=== PATIENT | male | born 1935 | race Caucasian/White ===

== ENCOUNTER 2019-07-28 11:29 | Outpatient (RCR) | payer MEDICARE, SELFPAY ==
[2019-05-31 10:31] LABS: INR 2.5; Prothrombin Time 26.7 Seconds (9.64-11.0)
[2019-06-30 14:23] LABS: INR 2.5; Prothrombin Time 25.8 Seconds (9.64-11.0)
[2019-07-28 11:49] LABS: INR 2.7; Prothrombin Time 28.8 Seconds (9.64-11.0)
== END 2019-08-29 23:59 | disposition home or self-care (01) ==
LOC: CHSLAB 11:29
PROVIDERS: Visit Provider Family Medicine
DX: Z79.01 Long term (current) use of anticoagulants (principal)
CPT/HCPCS: 36415; 85610

== ENCOUNTER 2019-09-23 10:07 | Outpatient (RCR) | payer MEDICARE, SELFPAY ==
[2019-09-01 11:47] LABS: Prothrombin Time 19.9 Seconds (9.64-11.0)
== END 2019-11-30 23:59 | disposition home or self-care (01) ==
LOC: CHSLAB 10:07
PROVIDERS: PCP Family Medicine; Visit Provider Family Medicine
DX: Z79.01 Long term (current) use of anticoagulants (principal)
CPT/HCPCS: 36415; 85610

== ENCOUNTER 2019-09-23 10:16 | Outpatient (CLI) | payer MEDICARE, SELFPAY ==
[2019-09-23 10:40] LABS: Hematocrit 40.4 % (37.0-46.0); Hemoglobin 12.7 g/dL (12.4-15.3); Mean Corpuscular HGB Conc 31.4 g/dL (32.0-36.0); Mean Corpuscular Hemoglobin 25.6 pg (27.0-31.0); Mean Corpuscular Volume 81.5 fL (78.0-102.0); Mean Platelet Volume 9.2 fl (8.7-11.0); Platelet Count Result 261 K/mm3 (150-420); Red Blood Count 4.96 M/mm3 (4.70-6.10); Red Cell Distribution Width 15.6 % (11.6-14.4); White Blood Count 7.5 K/mm3 (4.8-10.8)
[2019-09-23 10:51] LABS: INR 2.1; Prothrombin Time 21.3 Seconds (9.64-11.0)
[2019-09-23 11:17] LABS: Anion Gap 16.4 mmol/L (7-16); Blood Urea Nitrogen 24 mg/dL (7-18); Calcium 9.4 mg/dL (8.5-10.1); Carbon Dioxide 26 mmol/L (21-32); Chloride 100 mmol/L (98-108); Estimated Glomerular Filt Rate 60; Glucose 88 mg/dL (70-99); Osmolality Calculated 289 mOsm/kg (285-295); Potassium 4.4 mmol/L (3.5-5.1); Sodium 138 mmol/L (136-145)
== END 2019-09-23 10:17 | disposition home or self-care (01) ==
LOC: CHSLAB 10:22
PROVIDERS: PCP Family Medicine; Visit Provider Family Medicine
DX: Z51.81 Encounter for therapeutic drug level monitoring (principal); Z79.01 Long term (current) use of anticoagulants; I10 Essential (primary) hypertension
CPT/HCPCS: 36415; 80048; 85027; 85610

== ENCOUNTER 2019-12-22 11:04 | Outpatient (CLI) | payer MEDICARE, SELFPAY ==
--- NOTE | ~2019-12-22 | XR_ITS ---
EXAMINATION: XR lumbar spine 2-3V EXAM DATE: 12/22/2019 11:43 INDICATION: Chronic right-sided low back pain with bilateral sciatica. TECHNIQUE: Lumber spine frontal, lateral, lateral L5-S1 projections for interpretation. Comparison is made to prior examination from 02/12/2018. FINDINGS: Severe lower lumbar facet arthropathy. There are large bridging endplate osteophytes at L2 -3 and L3-4. There is 3 mm anterolisthesis L4 on L5. The vertebral bodies are otherwise aligned. The lumbar disc and vertebral body heights appear relatively well-maintained. Extensive aortic arterial s clerosis with left common iliac arterial stent identified. Bilateral pelvic surgical clips likely fro m lymph node dissection. There are no acute fractures identified. IMPRESSION: 1. Severe lower lumbar facet arthropathy. 2. Spondylosis as detailed above not significantly changed. Reviewed, dictated and finalized at location A.
--- NOTE | ~2019-12-22 | XR_ITS ---
EXAMINATION: XR hip BI 2V w AP pelvis EXAM DATE: 12/22/2019 11:43 INDICATION: Chronic right-sided low back pain, bilateral sciatica. TECHNIQUE: Each hip imaged independently (separate right and also left hip) 'frog leg' and frontal p rojections for interpretation. Frontal projection pelvis. There is no prior study for comparison. FINDINGS: No radiographic evidence of hip avascular necrosis. There is moderate symmetric bilateral hip primary osteoarthritis. There are no acute fractures or dislocations identified. There is no ruby bcutaneous gas. Pelvic surgical clips. Left common iliac and right superficial femoral arterial sten ts. The soft tissue is unremarkable. IMPRESSION: Moderate symmetric bilateral hip osteoarthritis. Reviewed, dictated and finalized at location A.
[2019-12-22 11:27] LABS: INR 2.3; Prothrombin Time 23.4 Seconds (9.64-11.0)
== END 2019-12-22 11:05 | disposition home or self-care (01) ==
PROVIDERS: PCP Family Medicine; Visit Provider Family Medicine
DX: M54.41 Lumbago with sciatica, right side (principal); M54.42 Lumbago with sciatica, left side; G89.29 Other chronic pain; Z79.01 Long term (current) use of anticoagulants
CPT/HCPCS: 36415; 72100; 73521; 85610

== ENCOUNTER 2020-03-23 11:08 | Outpatient (RCR) | payer MEDICARE, SELFPAY ==
[2020-01-24 11:15] LABS: INR 2.8; Prothrombin Time 28.4 Seconds (9.64-11.0)
[2020-02-21 12:23] LABS: INR 2.3; Prothrombin Time 23.6 Seconds (9.64-11.0)
[2020-03-23 11:34] LABS: INR 2.2; Prothrombin Time 22.6 Seconds (9.64-11.0)
== END 2020-04-23 23:59 | disposition home or self-care (01) ==
LOC: CHSLAB 11:08
PROVIDERS: PCP Family Medicine; Visit Provider Family Medicine
DX: Z51.81 Encounter for therapeutic drug level monitoring (principal); Z79.01 Long term (current) use of anticoagulants
CPT/HCPCS: 36415; 85610

== ENCOUNTER 2020-06-26 12:56 | Outpatient (RCR) | payer MEDICARE, SELFPAY ==
[2020-04-24 11:15] LABS: INR 3.1; Prothrombin Time 30.9 Seconds (9.64-11.0)
[2020-05-01 11:24] LABS: INR 2.2; Prothrombin Time 22.2 Seconds (9.64-11.0)
[2020-05-24 09:40] LABS: INR 2.5; Prothrombin Time 24.8 Seconds (9.64-11.0)
[2020-06-20 11:21] LABS: INR 3.2; Prothrombin Time 32.8 Seconds (9.50-12.10)
[2020-06-26 13:27] LABS: INR 2.1; Prothrombin Time 22.5 Seconds (9.50-12.10)
== END 2020-07-23 23:59 | disposition home or self-care (01) ==
LOC: CHSLAB 12:56
PROVIDERS: PCP Family Medicine; Visit Provider Family Medicine
DX: Z51.81 Encounter for therapeutic drug level monitoring (principal); Z79.01 Long term (current) use of anticoagulants
CPT/HCPCS: 36415; 85610

== ENCOUNTER 2020-08-28 10:47 | Outpatient (RCR) | payer MEDICARE, SELFPAY ==
[2020-07-24 11:47] LABS: INR 3.1; Prothrombin Time 32.1 Seconds (9.50-12.10)
[2020-07-31 11:33] LABS: INR 2.6; Prothrombin Time 27.5 Seconds (9.50-12.10)
[2020-08-28 11:10] LABS: INR 2.9; Prothrombin Time 29.3 Seconds (9.50-12.10)
== END 2020-10-22 23:59 | disposition home or self-care (01) ==
LOC: CHSLAB 10:47
PROVIDERS: PCP Family Medicine; Visit Provider Family Medicine
DX: Z51.81 Encounter for therapeutic drug level monitoring (principal); Z79.01 Long term (current) use of anticoagulants
CPT/HCPCS: 36415; 85610

== ENCOUNTER 2020-09-25 08:15 | Outpatient (CLI) | payer MEDICARE, SELFPAY ==
--- NOTE | ~2020-09-25 | CT_ITS ---
EXAMINATION: CTA abd aorta runoff EXAM DATE: 09/25/2020 09:59 INDICATION: Claudification; aftercare following surgery post circulatory surg 2 yrs f/u, bilat leg we akness, hx CA . TECHNIQUE: Spiral CTA abd aorta runoff was performed following intravenous injection of 150 mL Omnipa que 350. Axial, coronal and sagittal images were reviewed. Maximum intensity projection 3-D reconstr uctions of the arteries were created by the technologist on dedicated workstation. The dose-length product (DLP) for this examination was 1619.66 mGy-cm. The exposure was tailored according to patie nt size (auto mA exposure control), and iterative reconstruction (ASIR) was used as additional dose r eduction technique. Correlation is made to abdomen pelvis CT 04/09/2018. FINDINGS: ARTERIES: Aorta normal in caliber. There is moderate to severe scattered aortoiliac arterial sclerosi s. Probably mild stenosis origin of left renal artery. RIGHT lower extremity demonstrates severe shor t segment moderate stenosis external iliac artery deep to the femoral canal (axial image 150) with shawn men narrowed to 2 mm. Completely occluded stent within the [place] superficial femoral artery. There i s a medially located graft widely patent, reconstituting the interosseous artery to the ankle, where collaterals reconstitute the other vessels. LEFT lower extremity demonstrates scattered arterial scle rosis, with a short segment region of proximal SFA moderate stenosis narrowing the lumen to 2.3 mm (a xial image 218). There is mid femoral stent, intimal hyperplasia, lumen narrowed throughout but most severe to about 1 mm lumen (axial image 266). Intraosseous is the dominant supply to the foot, appear s to reconstitute the posterior tibial at the ankle. INCIDENTAL FINDINGS: Small hiatal hernia. Mild mirlande mesentery appearance, nonspecific. Mild sigmoid predominant diverticulosis. Small umbilical hernia. Prostatectomy, pelvic lymph node dissection. No r etroperitoneal or pelvic lymphadenopathy. Right inguinal fat stranding (recent catheterization?. IMPRESSION: 1. Stents, arterial sclerosis and stenoses as above with intraosseous arteries reconstituting others at the ankle. 2. Small hiatal hernia, other incidental findings as above. Reviewed, dictated and finalized at location B. LING FIELD OPERATOR
[2020-09-25 09:02] LABS: INR 3.1; Prothrombin Time 31.1 Seconds (9.50-12.10)
[2020-09-25 09:09] LABS: Estimated Glomerular Filt Rate 45
== END 2020-09-25 08:16 | disposition home or self-care (01) ==
LOC: CHSIMG 08:19 → CHSLAB 11:51
PROVIDERS: PCP Family Medicine
DX: Z51.81 Encounter for therapeutic drug level monitoring (principal); Z79.01 Long term (current) use of anticoagulants; I25.10 Atherosclerotic heart disease of native coronary artery without angina pectoris; Z48.812 Encounter for surgical aftercare following surgery on the circulatory system
CPT/HCPCS: 75635; 85610; Q9967

== ENCOUNTER 2021-01-12 11:37 | Outpatient (RCR) | payer MEDICARE, SELFPAY ==
[2020-10-23 10:26] LABS: Prothrombin Time 30.8 Seconds (9.50-12.10)
[2020-11-16 12:54] LABS: INR 3.6; Prothrombin Time 36.1 Seconds (9.50-12.10)
[2020-11-21 10:23] LABS: INR 3.1; Prothrombin Time 31.4 Seconds (9.50-12.10)
[2020-11-27 11:18] LABS: INR 2.5; Prothrombin Time 25.1 Seconds (9.50-12.10)
[2021-01-05 13:44] LABS: INR 1.9; Prothrombin Time 19.8 Seconds (9.50-12.10)
[2021-01-12 12:03] LABS: INR 2.7; Prothrombin Time 27.2 Seconds (9.50-12.10)
== END 2021-01-21 23:59 | disposition home or self-care (01) ==
LOC: CHSLAB 11:37
PROVIDERS: PCP Family Medicine; Visit Provider Family Medicine
DX: Z79.01 Long term (current) use of anticoagulants (principal); I25.10 Atherosclerotic heart disease of native coronary artery without angina pectoris
CPT/HCPCS: 36415; 85610

== ENCOUNTER 2021-05-14 10:45 | Outpatient (RCR) | payer MEDICARE, SELFPAY ==
[2021-02-19 10:50] LABS: Prothrombin Time 30.6 Seconds (9.50-12.10)
[2021-03-20 11:59] LABS: Prothrombin Time 20.8 Seconds (9.50-12.10)
[2021-04-23 11:21] LABS: INR 3.8; Prothrombin Time 37.7 Seconds (9.50-12.10)
[2021-04-30 11:23] LABS: INR 1.9; Prothrombin Time 19.8 Seconds (9.50-12.10)
[2021-05-14 11:09] LABS: INR 1.8; Prothrombin Time 18.6 Seconds (9.50-12.10)
== END 2021-05-20 23:59 | disposition home or self-care (01) ==
LOC: CHSLAB 10:45
PROVIDERS: PCP Family Medicine; Visit Provider Family Medicine
DX: Z79.01 Long term (current) use of anticoagulants (principal); I25.10 Atherosclerotic heart disease of native coronary artery without angina pectoris
CPT/HCPCS: 36415; 85610

== ENCOUNTER 2021-08-28 11:12 | Outpatient (RCR) | payer MEDICARE, SELFPAY ==
[2021-06-11 10:20] LABS: INR 2.5; Prothrombin Time 25.7 Seconds (9.50-12.10)
[2021-07-16 11:15] LABS: INR 3.2; Prothrombin Time 32.1 Seconds (9.50-12.10)
[2021-07-23 15:40] LABS: INR 2.4
[2021-08-28 11:43] LABS: INR 2.6; Prothrombin Time 26.1 Seconds (9.50-12.10)
== END 2021-09-09 23:59 | disposition home or self-care (01) ==
LOC: CHSLAB 11:12
PROVIDERS: PCP Family Medicine; Visit Provider Family Medicine
DX: Z51.81 Encounter for therapeutic drug level monitoring (principal); Z79.01 Long term (current) use of anticoagulants; I25.10 Atherosclerotic heart disease of native coronary artery without angina pectoris
CPT/HCPCS: 36415; 85610

== ENCOUNTER 2021-09-06 10:40 | Outpatient (NON) | payer MEDICARE, SELFPAY | END 2021-09-06 10:41 | disposition home or self-care (01) | LOC: CHSLAB 10:41 | PROVIDERS: Visit Provider Family Medicine | DX: D18.01 Hemangioma of skin and subcutaneous tissue (principal) | CPT/HCPCS: 88305 ==

== ENCOUNTER 2021-10-08 15:12 | Outpatient (CLI) | payer MEDICARE, SELFPAY ==
--- NOTE | ~2021-10-08 | XR_ITS ---
EXAMINATION: XR knee RT 3V DATE: 10/08/2021 15:44 INDICATION: Right knee effusion TECHNIQUE: Three views of the right knee were obtained. COMPARISON: None. FINDINGS: Alignment is normal. No fracture or osteochondral lesion. There is mild tricompartmental os teoarthritis characterized by tiny marginal osteophytes. There is a trace knee joint effusion. Vascul ar stents are noted. IMPRESSION: 1. Mild osteoarthritis without acute osseous abnormality. 2. Trace joint effusion. Reviewed, dictated and finalized at location B.
[2021-10-08 15:31] LABS: Hematocrit 38.5 % (37.0-46.0); Hemoglobin 11.9 g/dL (12.4-15.3); Mean Corpuscular HGB Conc 30.9 g/dL (32.0-36.0); Mean Corpuscular Hemoglobin 26.2 pg (27.0-31.0); Mean Corpuscular Volume 84.6 fL (78.0-102.0); Mean Platelet Volume 9.6 fl (8.7-11.0); Platelet Count Result 255 K/mm3 (150-420); Red Blood Count 4.55 M/mm3 (4.70-6.10); Red Cell Distribution Width 16.9 % (11.6-14.4); White Blood Count 10.8 K/mm3 (4.8-10.8)
[2021-10-08 15:51] LABS: INR 2.9; Prothrombin Time 29.1 Seconds (9.50-12.10)
[2021-10-08 15:55] LABS: Alanine Aminotransferase 27 U/L (16-63); Albumin Level 3.4 g/dL (3.4-5.0); Alkaline Phosphatase 61 U/L (46-116); Anion Gap 9 mmol/L (8-16); Aspartate Amino Transferase 17 U/L (15-37); Bilirubin,Total 0.2 mg/dL (0.00-1.00); Blood Urea Nitrogen 32 mg/dL (7-18); Calcium 8.5 mg/dL (8.5-10.1); Carbon Dioxide 27 mmol/L (21-32); Chloride 100 mmol/L (98-108); Estimated Glomerular Filt Rate 37; Glucose 114 mg/dL (70-99); Osmolality Calculated 289 mOsm/kg (285-295); Potassium 3.8 mmol/L (3.5-5.1); Sodium 136 mmol/L (136-145); Total Protein 6.4 g/dL (6.4-8.2)
[2021-10-10 10:34] LABS: Source Synovial Fluid Synovial fluid
[2021-10-10 10:35] LABS: Appearance Synovial Fluid Cloudy (Clear); Color Synovial Fluid Other (Colorless)
[2021-10-10 10:37] LABS: Nucleated Cell Synovial Fluid 338 /uL (0-200)
[2021-10-10 10:38] LABS: Neutrophils Synovial Fluid 25 % (0-25)
[2021-10-10 10:39] LABS: Lymphocytes Synovial Fluid 25 %; Monocytes Synovial Fluid 47 %
[2021-10-10 10:40] LABS: RBC Synovial Fluid 0 /uL (0-0)
[2021-10-10 10:42] LABS: Other Cells Synovial Fluid 3 %
[2021-10-13 06:15] LABS: Crystals Synovial Fluid None Seen (None Seen)
== END 2021-10-08 15:13 | disposition home or self-care (01) ==
LOC: CHSIMG 15:16
PROVIDERS: PCP Family Medicine; Visit Provider Family Medicine
DX: M25.461 Effusion, right knee (principal); Z79.01 Long term (current) use of anticoagulants
CPT/HCPCS: 36415; 73562; 80053; 83615; 85027; 85610; 87070; 87075; 87205; 88108; 89051; 89060

== ENCOUNTER 2021-12-14 10:41 | Outpatient (RCR) | payer MEDICARE, SELFPAY ==
[2021-09-18 11:37] LABS: INR 3.3
[2021-11-02 11:50] LABS: INR 3.2; Prothrombin Time 32.4 Seconds (9.50-12.10)
[2021-11-12 11:09] LABS: INR 3.2; Prothrombin Time 32.7 Seconds (9.50-12.10)
[2021-11-19 11:08] LABS: Prothrombin Time 40.2 Seconds (9.50-12.10)
[2021-11-26 10:50] LABS: INR 1.7; Prothrombin Time 17.2 Seconds (9.50-12.10)
[2021-12-14 11:41] LABS: INR 1.2
== END 2021-12-17 23:59 | disposition home or self-care (01) ==
LOC: CHSLAB 10:41
PROVIDERS: PCP Family Medicine; Visit Provider Family Medicine
DX: Z79.01 Long term (current) use of anticoagulants (principal)
CPT/HCPCS: 36415; 85610

== ENCOUNTER 2022-03-22 09:01 | Outpatient (RCR) | payer MEDICARE, SELFPAY ==
[2022-01-09 11:36] LABS: INR 2.3; Prothrombin Time 23.9 Seconds (9.50-12.10)
[2022-02-18 10:50] LABS: INR 2.1; Prothrombin Time 21.9 Seconds (9.50-12.10)
[2022-03-22 09:22] LABS: INR 2.3; Prothrombin Time 23.4 Seconds (9.50-12.10)
== END 2022-04-09 23:59 | disposition home or self-care (01) ==
LOC: CHSLAB 09:01
PROVIDERS: PCP Family Medicine; Visit Provider Family Medicine
DX: Z79.01 Long term (current) use of anticoagulants (principal)
CPT/HCPCS: 36415; 85610

== ENCOUNTER 2022-07-23 12:45 | Outpatient (RCR) | payer MEDICARE, SELFPAY ==
[2022-05-29 12:48] LABS: INR 2.6; Prothrombin Time 26.6 Seconds (9.50-12.10)
[2022-07-08 12:21] LABS: INR 1.9; Prothrombin Time 19.3 Seconds (9.50-12.10)
[2022-07-23 13:28] LABS: Prothrombin Time 21.1 Seconds (9.50-12.10)
== END 2022-08-27 23:59 | disposition home or self-care (01) ==
LOC: CHSLAB 12:45
PROVIDERS: PCP Family Medicine; Visit Provider Family Medicine
DX: Z51.81 Encounter for therapeutic drug level monitoring (principal); Z79.01 Long term (current) use of anticoagulants
CPT/HCPCS: 36415; 85610

== ENCOUNTER 2022-11-18 11:32 | Outpatient (RCR) | payer MEDICARE, SELFPAY ==
[2022-08-28 13:03] LABS: INR 1.6; Prothrombin Time 17.2 Seconds (9.50-12.10)
[2022-09-04 14:33] LABS: INR 1.1
[2022-09-10 10:52] LABS: Prothrombin Time 10.8 Seconds (9.50-12.10)
[2022-10-09 10:29] LABS: INR 1.7
[2022-10-22 11:49] LABS: INR 2.9; Prothrombin Time 29.3 Seconds (9.50-12.10)
[2022-11-18 11:59] LABS: INR 2.9
== END 2022-11-26 23:59 | disposition home or self-care (01) ==
LOC: CHSLAB 11:32
PROVIDERS: PCP Family Medicine; Visit Provider Family Medicine
DX: Z51.81 Encounter for therapeutic drug level monitoring (principal); Z79.01 Long term (current) use of anticoagulants
CPT/HCPCS: 36415; 85610

== ENCOUNTER 2022-12-26 11:16 | Outpatient (RCR) | payer MEDICARE, SELFPAY ==
[2022-12-19 14:32] LABS: INR 1.8; Prothrombin Time 19.2 Seconds (9.50-12.10)
[2022-12-26 11:52] LABS: Prothrombin Time 20.7 Seconds (9.50-12.10)
== END 2023-03-16 23:59 | disposition home or self-care (01) ==
LOC: CHSLAB 11:16
PROVIDERS: PCP Family Medicine; Visit Provider Family Medicine
DX: Z51.81 Encounter for therapeutic drug level monitoring (principal); Z79.01 Long term (current) use of anticoagulants
CPT/HCPCS: 36415; 85610

== ENCOUNTER 2023-01-23 11:17 | Outpatient (CLI) | payer MEDICARE, SELFPAY ==
[2023-01-23 11:49] LABS: INR 3.4
== END 2023-01-23 11:18 | disposition home or self-care (01) ==
LOC: CHSLAB 11:23
PROVIDERS: PCP Family Medicine; Visit Provider Family Medicine
DX: Z79.01 Long term (current) use of anticoagulants (principal)
CPT/HCPCS: 36415; 85610

== ENCOUNTER 2023-01-27 08:59 | Outpatient (CLI) | payer MEDICARE, SELFPAY ==
[2023-01-27 09:27] LABS: INR 2.2; Prothrombin Time 22.3 Seconds (9.50-12.10)
== END 2023-01-27 09:00 | disposition home or self-care (01) ==
LOC: CHSLAB 09:03
PROVIDERS: PCP Family Medicine; Visit Provider Family Medicine
DX: Z79.01 Long term (current) use of anticoagulants (principal)
CPT/HCPCS: 36415; 85610

== ENCOUNTER 2023-02-26 19:00 | Emergency (ER) | payer MEDICARE, SELFPAY ==
--- NOTE | ~2023-02-26 | XR_ITS ---
EXAMINATION: XR chest 1V portable Exam Date/Time: 02/26/2023 19:50 CDT HISTORY: fall/NO CHEST COMPLAINTS Comparison: 01/03/2017. RESULT: Lines, tubes, and devices: None. Lungs and pleura: Senescent change, otherwise clear. Cardiomediastinal silhouette: Stable. Other: No acute osseous or upper abdominal finding. IMPRESSION: No acute cardiopulmonary process. Reviewed, dictated and finalized at location K.
--- NOTE | ~2023-02-26 | CT_ITS ---
EXAMINATION: CT brain wo con DATE: 02/26/2023 20:29 INDICATION: FALL/LEFT SIDE HEAD INJURY . TECHNIQUE: Computed tomography (CT) of the head was performed without intravenous contrast. The mA wa s adjusted according to patient size. Iterative reconstruction technique was employed. The dose-lengt h product was 681.00 mGy-cm. COMPARISON: None. FINDINGS: Hyperechoic thickening along the right side of the falx cerebri and extending along the right tentori um, with areas of mixed internal hyperdensity as well as the hematocrit effect, maximum thickness 9 m m. Very thin 2 to 3 mm isoechoic right hemispheric subdural collection. There is mass effect in the r ight hemisphere, with subtle effacement of the right lateral ventricle and multiple left cerebral sul ci. No hydrocephalus, mass, or herniation. No acute ischemic infarct. Unremarkable dural venous sinus attenuation. No acute osseous abnormality. The aerated spaces are clear. Moderate atrophy and mild chronic white matter change. Atherosclerotic intracranial calcification. Bi lateral lens replacements. IMPRESSION: Acute on subacute right sided intracranial hemorrhage, with mass effect on the right cerebral hemisph ere. The intracranial hemorrhage includes acute, moderate volume, subdural hemorrhage along the falx and r ight tentorium as well as a subacute, small volume, right hemispheric subdural collection. Results reported telephonically to Dr. Schmitt by Dr. Mora at 8:45 PM on 02/26/2023. Reviewed, dictated and finalized at location K. IMPRESSION: Acute on subacute right sided intracranial hemorrhage, with mass effect on the right cerebral hemisphere. The intracranial hemorrhage includes acute, moderate volume, subdural hemorrhag e along the falx and right tentorium as well as a subacute, small volume, right hemispheric subdural collection. Results reported telephonically to Dr. Schmitt by Dr. Mora at 8:45 PM on 2022.
--- NOTE | ~2023-02-26 | CT_ITS ---
EXAMINATION: CT pelvis wo con DATE: 02/26/2023 20:31 INDICATION: Fall. Lower back pain. TECHNIQUE: Computed tomography (CT) of the pelvis was performed without intravenous contrast. Automat ed exposure control and iterative reconstruction technique were employed. The dose-length product was 770.66 mGy-cm. COMPARISON: None FINDINGS: Surgical clips in the pelvis and bilateral inguinal canals. Diverticulosis without divertic ulitis. Distended urinary bladder. Possible TURP and prostatectomy changes. Atherosclerotic calcifica tions. Left common iliac and right femoral artery stents. Decreased osseous mineralization. Degenerat nik changes in the lower lumbar spine and bilateral hips. No fracture or dislocation. IMPRESSION: No acute osseous finding in the pelvis. Reviewed, dictated and finalized at location K.
--- NOTE | ~2023-02-26 | CT_ITS ---
EXAMINATION: CT thoracic spine wo con DATE: 02/26/2023 20:30 INDICATION: FALL/PAIN THROUGHOUT BACK . TECHNIQUE: Computed tomography (CT) of the thoracic spine was performed without intravenous contrast. Automated exposure control and iterative reconstruction technique were employed. The dose-length pro duct was 1544.21 mGy-cm. COMPARISON: None FINDINGS: THORACIC SPINE: Vertebral body alignment intact. Exaggerated thoracic kyphosis. Multilevel disc space narrowing and p artial disc space fusion. Multiple large bridging and fused lateral osteophytes. Flowing ossification of the anterior longitudinal ligament. Syndesmophytes. Ossification along the interspinous ligament. These changes may be related to ankylosing spondylitis and/or DISH. No traumatic malalignment or fra cture. Visualized lung parenchyma is clear. IMPRESSION: No acute fracture or traumatic malalignment detected in the thoracic spine. Reviewed, dictated and finalized at location K.
--- NOTE | ~2023-02-26 | CT_ITS ---
EXAMINATION: CT cervical spine wo con DATE: 02/26/2023 20:30 INDICATION: fall/POSTERIOR NECK PAIN TECHNIQUE: Computed tomography (CT) of the cervical spine was performed without intravenous contrast. Automated exposure control and iterative reconstruction technique were employed. The dose-length pro duct was 488.25 mGy-cm. COMPARISON: None. FINDINGS: Vertebral Body Alignment: Intact. Craniocervical and atlantoaxial alignment: Severe degenerative change. Alignment intact. Osseous structures/fracture: No evidence of a lytic or blastic process in the visualized spine. No e vidence of acute fracture. Cervical soft tissues: The paraspinal soft tissues planes are maintained. Scattered tree-in-bud opaci ties in the upper lungs. Degenerative changes: Multilevel degenerative disc disease and facet arthropathy, including large chandana dging anterior osteophytes. Multilevel bilateral neural foraminal narrowing. Moderate central canal n arrowing at multiple levels. IMPRESSION: No acute fracture or traumatic malalignment in the cervical spine. Tree-in-bud opacities in the upper lungs may represent atypical infection. Reviewed, dictated and finalized at location K.
[2023-02-26 19:09] VITALS: BP 179/59; PULSE 78; RESP 18; TEMP 36.4; O2SAT 98
--- NOTE | 2023-02-26 19:37 | ED.FALL ---
HPI - Fall General Chief Complaint: Fall Stated Complaint: Fall Source: patient Mode of arrival: ambulatory Limitations: no limitations History of Present Illness HPI Narrative: 87-year-old male with hypertension, dyslipidemia, peripheral vascular disease, CAD status post stents, CKD, DVT on warfarin, varicose veins status post stripping in the right leg, prostate cancer on Lupron lost balance and fell. He presents with -- left occipital hematoma -- midback pain no other injury noted MD complaint: fall Onset (ago): hour(s) ( 2 hours ago) Fall from: standing Fall witnessed: no Place fall occurred: home Loss of consciousness: none Prolonged down time: no Symptoms prior to fall: none Context: tripped/slipped Location of injury: head and back Related Data Home Medications Medication Instructions Recorded Confirmed aspirin 81 mg tablet,delayed 81 mg PO DAILY 09/14/19 02/26/23 release (Adult Low Dose Aspirin) latanoprost 0.005 % eye drops 1 drop ophthalmic (eye) DAILY 09/14/19 02/26/23 timolol 0.5 % eye drops 1 drop ophthalmic (eye) Q12H 09/14/19 02/26/23 cyanocobalamin (vitamin B-12) 100 100 mcg PO DAILY 02/26/21 02/26/23 mcg tablet esomeprazole magnesium 40 mg 40 mg PO DAILY 02/26/21 02/26/23 capsule,delayed release leuprolide (3 month) 22.5 mg (3 22.5 mg IM [id number] 02/26/21 02/26/23 month) intramuscular syringe kit dupilumab 300 mg/2 mL subcutaneous 300 mg subcut DIRECTED 02/26/23 02/26/23 pen injector ([employer]) Allergies Allergy/AdvReac Type Severity Reaction Status Date / Time No Known Allergies Allergy Verified 10/11/22 07:17 Review of Systems Review of Systems: All systems reviewed & are unremarkable except as noted in HPI and below Constitutional: Constitutional: Reports as per HPI and Reports no additional constitutional complaints Eyes: Eyes: Reports as per HPI and Reports no additional eye complaints ENT: Reports system reviewed and no additional complaints, except as documented and Reports as per HPI Cardiovascular: Cardiovascular: Reports as per HPI and Reports no additional cardiovascular complaints Respiratory: Respiratory: Reports as per HPI and Reports no additional respiratory complaints Gastrointestinal: Gastrointestinal: Reports as per HPI and Reports no additional gastrointestinal complaints Genitourinary: Genitourinary: Reports no additional male genitourinary complaints Musculoskeletal: Musculoskeletal: Reports back pain Comments: he had mid back pain. No radiation of the pain. Integumentary/Breasts: Skin/Breast: Reports system reviewed and no additional complaints, except as docu Neurologic: Reports system reviewed and no additional complaints, except as documented and Reports as per HPI Comments: No headache no loss of consciousness. Psychiatric: Psychiatric: Reports no additional psychiatric complaints and Reports as per HPI Endocrine: Endocrine: Reports no additional endocrine complaints and Reports as per HPI Hematologic/Lymphatic: Hematologic/Lymphatic: Reports no additional hematologic/lymphatic complaints and Reports as per HPI Allergic/Immunologic: Allergic/Immunologic: Reports no additional allergic/immunologic complaints and Reports as per HPI [facility] Past Medical History Medical History Anticoagulation goal of INR 2 to 3 CAD (coronary artery disease) CKD (chronic kidney disease), stage III GERD (gastroesophageal reflux disease) Hyperlipidemia Hypertension Neuropathy Prostate cancer PVD (peripheral vascular disease) Surgical History Surgical History History of coronary artery stent placement History of prostatectomy Family History Family History Father Lung cancer Mother Skin cancer Sibling Carcinoma of colon Mother Family history
[2023-02-26 20:04] LABS: Basophils Absolute Auto 0.05 K/mm3 (0.00-0.10); Basophils Percent Auto 0.5 % (0.0-1.0); Eosinophils Absolute Auto 0.82 K/mm3 (0.02-0.50); Eosinophils Percent Auto 8.5 % (1.0-6.0); Hematocrit 34.8 % (37.0-46.0); Hemoglobin 10.8 g/dL (12.4-15.3); Immature Granulocyte Absolute 0.02 K/mm3 (0.00-0.00); Immature Granulocyte Percent A 0.2 % (0.0-0.0); Lymphocytes Absolute Auto 1.64 K/mm3 (1.10-4.50); Lymphocytes Percent Auto 17.1 % (18.0-42.0); Mean Corpuscular Hemoglobin 25.3 pg (27.0-31.0); Mean Corpuscular Volume 81.5 fL (78.0-102.0); Mean Platelet Volume 9.3 fl (8.7-11.0); Monocytes Absolute Auto 0.54 K/mm3 (0.10-0.90); Monocytes Percent Auto 5.6 % (2.0-11.0); Neutrophils Absolute Auto 6.5 K/mm3 (1.7-7.2); Neutrophils Percent Auto 68.1 % (50.0-70.0); Platelet Count Result 254 K/mm3 (150-420); Red Blood Count 4.27 M/mm3 (4.70-6.10); Red Cell Distribution Width 16.7 % (11.6-14.4); White Blood Count 9.6 K/mm3 (4.8-10.8)
[2023-02-26 20:16] LABS: INR 1.9; Prothrombin Time 19.9 Seconds (9.50-12.10)
[2023-02-26 20:19] LABS: Alanine Aminotransferase 16 U/L (16-63); Albumin Level 3.2 g/dL (3.4-5.0); Alkaline Phosphatase 78 U/L (46-116); Anion Gap 8 mmol/L (8-16); Aspartate Amino Transferase 13 U/L (15-37); Bilirubin,Total 0.2 mg/dL (0.00-1.00); Blood Urea Nitrogen 32 mg/dL (7-18); Calcium 9.1 mg/dL (8.5-10.1); Carbon Dioxide 30 mmol/L (21-32); Chloride 103 mmol/L (98-108); Estimated CRCL calculation 32 ml/min; Estimated Glomerular Filt Rate 44; Glucose 179 mg/dL (70-99); Osmolality Calculated 302 mOsm/kg (285-295); Potassium 3.8 mmol/L (3.5-5.1); Sodium 141 mmol/L (136-145); Total Protein 6.7 g/dL (6.4-8.2)
[2023-02-26 21:02] VITALS: BP 207/90; PULSE 91; RESP 18; O2SAT 98
[2023-02-26] MEDS: ONDANSETRON INJ 4 MG/2 ML VIAL IV PUSH (21:08)
[2023-02-26] MEDS: LABETALOL HCL INJ 100 MG/20 ML VIAL 10 MG IV PUSH ×2 (21:09→22:24)
--- NOTE | 2023-02-26 21:10 | PC.NURSE ---
Pt resting c daughter at bedside, reports back and pt and daughter wish to go to [facility]. Calls initiated for trauma transfer.
[2023-02-26] MEDS: HYDROmorphone HCL INJ (*CRX) 2 MG/ML VIAL 0.5 MG IV PUSH ×2 (21:17→22:30)
[2023-02-26 21:27] VITALS: BP 169/62; PULSE 62; RESP 18; O2SAT 93
[2023-02-26] MEDS: levETIRAcetam 500MG/NACL 100ML 500 MG/100 ML BAG 400 MG IVPB (21:27)
[2023-02-26] MEDS: PHYTONADIONE ADULT INJ 10 MG in DEXTROSE 5% IN WATER 50 ML 100 MG IVPB (21:36)
[2023-02-26] MEDS: SODIUM CHLORIDE 3% 150 ML 30 ML IV CONT (21:40)
--- NOTE | 2023-02-26 21:40 | ECG_ITS ---
Measurements Intervals [place] Rate: 65 P: 61 AL: 204 QRS: 50 QRSD: 81 T: 48 QT: 434 QTc: 454 Interpretive Statements SINUS RHYTHM NORMAL ECG NO PREVIOUS ECG AVAILABLE FOR COMPARISON Electronically Signed On 02-27-2023 9:11:13 CDT by Chidi Slade M.D.
--- NOTE | 2023-02-26 21:51 | PC.NURSE ---
[employer] notified for flight to [place], declined due to weather, [facility] notified and they declined as well due to weather.
[2023-02-26 22:08] LABS: Troponin I 6.7 ng/L (0.00-60.4)
[2023-02-26 22:16] VITALS: BP 173/62; PULSE 67; RESP 18; TEMP 36.6; O2SAT 94
[2023-02-26 22:30] VITALS: BP 163/77; PULSE 67; RESP 18; O2SAT 94
[2023-02-26 22:32] VITALS: BP 166/72; PULSE 74; RESP 18; TEMP 36.6; O2SAT 95
--- NOTE | 2023-02-26 22:36 | PC.NURSE ---
Pt transferred c [facility] running and continuing to infuse c [facility] on transfer to [place]. Pt also has NS 3% running and continuing to infuse on transfer. Report called to [place]. Pt left in stable condition c [facility], report given to [facility].
== END 2023-02-26 22:38 | disposition short-term general hospital (02) ==
PROVIDERS: Emergency Provider Internal Medicine Critical Care Medicine; PCP Family Medicine
DX: S06.5XAA Traumatic subdural hemorrhage with loss of consciousness status unknown, initial encounter (principal); C61 Malignant neoplasm of prostate; I25.10 Atherosclerotic heart disease of native coronary artery without angina pectoris; I12.9 Hypertensive chronic kidney disease with stage 1 through stage 4 chronic kidney disease, or unspecified chronic kidney disease; N18.32 Chronic kidney disease, stage 3b; E78.5 Hyperlipidemia, unspecified; Z79.01 Long term (current) use of anticoagulants; Z79.82 Long term (current) use of aspirin; Z85.038 Personal history of other malignant neoplasm of large intestine; Z79.899 Other long term (current) drug therapy; W01.0XXA Fall on same level from slipping, tripping and stumbling without subsequent striking against object, initial encounter; Y92.009 Unspecified place in unspecified non-institutional (private) residence as the place of occurrence of the external cause
CPT/HCPCS: 36415; 36430; 70450; 71045; 72125; 72128; 72192; 80053; 84484; 85025; 85610; 86900; 86901; 93005; 96361; 96365; 96367; 96375; 96376; 99291; J1170; J1953; J2405; J3430; J7060; J7131; P9017